=== PATIENT | female | born 1955 | race Caucasian/White ===

== ENCOUNTER 2019-01-04 04:31 | Inpatient (IN) | payer BC ==
[2019-01-04] MEDS ORDERED: ACETAMINOPHEN 1000 MG/100 ML VIAL (NON FORMULARY) IVPB ONE (05:02)
--- NOTE | 2019-01-04 05:02 | PDOC ---
Attending Attestation - Resident Resident Name: JeredEnmanuel - ED Attending Attestation I have performed the following: I have examined & evaluated the patient, The case was reviewed & discussed with the resident, I agree w/resident's findings & plan - HPI HPI: 01/04/19 05:00 Pt comes with fall in her backyard. She is all scratched up and banged up. - Physicial Exam PE: 01/04/19 05:01 Agree with resident exam. - Medical Decision Making 01/04/19 05:01 Pt will get head CT. ABX, XRAYS, saline, labs, EKG 01/04/19 05:58 All labs are normal 01/04/19 06:08 Pt will be admitted for 24 hrs of observation. Heart Score/ECG Review - ECG Intrepretation Rhythm: Regular Rhythm - Kanaranzi Kanaranzi: Normal - P and OH Delta Wave(s) Present: No WPW: No - QRS Poor R Wave Progression: No Q Wave Present: No - ST and T Early Repolarization: No Non Specific ST-T Wave changes: No Flattened T Waves: No Prolonged Q-T Interval: No - ECG Impressions Normal ECG: Yes Non-specific ST Elevation: No Ischemic Changes: No Bradycardia: No Torsades celso Pointes: No
--- NOTE | 2019-01-04 05:04 | PDOC ---
History of Present Illness - General Chief Complaint: Injury Stated Complaint: FALL Time Seen by Provider: 01/04/19 05:00 History Source: Patient Exam Limitations: No Limitations - History of Present Illness Initial Comments: 01/04/19 06:53 63 yo F with a hx of breast cancer (s/p resection; no chemo or radiation), HLD, and GERD presents to the emergency department s/p fall that occurred at 9pm yesterday. Per the patient, she was in her backyard and opened the back gate. The dog ran out which caused her to fall, landing on the right side on the lower extremity and hitting the left forehead against cement pavement. Denies LOC. Denies nausea and vomiting. She tried to "sleep it off" but subsequently awoke this morning with pain in the right knee, right foot, left foot, left forehead. Denies the following: lightheadedness, chest pain, SOB, dysuria, hematuria, diarrhea, hematochezia, and dizziness. AllergieS: NKDA Social hx: Denies substance abuse Shx: Refer to above Past History - Past Medical History Allergies/Adverse Reactions: Allergies Allergy/AdvReac Type Severity Reaction Status Date / Time No Known Allergies Allergy Verified 01/04/19 04:38 Home Medications: Ambulatory Orders Levothyroxine Sodium [Synthroid] 100 mcg PO DAILY 01/04/19 Losartan Potassium [Cozaar -] 50 mg PO DAILY 01/04/19 Rosuvastatin [Crestor -] 20 mg PO HS 01/04/19 Sertraline HCl [Zoloft -] 100 mg PO DAILY 01/04/19 Cancer: Yes (remission breast) COPD: No Hypercholesterolemia: Yes - Suicide/Smoking/Psychosocial Hx Smoking History: Never smoked Review of Systems - Review of Systems Able to Perform ROS?: Yes Is the patient limited Irish proficient: No Constitutional: No: Chills, Diaphoresis, Fever, Weakness HEENTM: No: Eye Pain, Blurred Vision, Ear Pain, Nose Pain, Throat Pain, Mouth Pain Respiratory: No: Cough, Shortness of Breath, SOB with Exertion, Hemoptysis Cardiac (ROS): No: Chest Pain, Lightheadedness, Palpitations, Syncope, Chest Tightness ABD/GI: No: Constipated, Diarrhea, Nausea, Rectal Bleeding, Vomiting, Tarry Stools : No: Burning, Dysuria, Hematuria Musculoskeletal: Yes: Joint Pain, Muscle Pain. No: Back Pain, Neck Pain Integumentary: No: Bruising, Erythema, Rash Neurological: Yes: Headache. No: Numbness, Tingling, Tremors Psychiatric: No: Change in Appetite Endocrine: No: Unexplained Weight Gain Hematologic/Lymphatic: No: Anemia *Physical Exam - Vital Signs Last Vital Signs Temp Pulse Resp BP Pulse Ox 97.8 F 82 18 94/74 99 01/04/19 04:38 01/04/19 04:38 01/04/19 04:38 01/04/19 04:01/04/19 04:38 - Physical Exam General Appearance: Yes: Nourished, Appropriately Dressed, Other (punctate laceration on the left forehead. ). No: Disheveled, Intoxicated HEENT: positive: EOMI, TREMAYNE, Normal Voice, Symmetrical, Pharynx Normal, Hearing Grossly Normal. negative: Pale Conjunctivae, Scleral Icterus (R), Scleral Icterus (L), Muffled/Hoarse voice, Pharyngeal Erythema, Tonsillar Exudate, Tonsillar Erythema, Nasal Congestion, Rhinorrhea, Sinus Tenderness, Excessive drooling Neck: positive: Trachea midline, Supple. negative: Tender, Lymphadenopathy (R) , Lymphadenopathy (L), Tender lateral, Tender midline Respiratory/Chest: positive: Lungs Clear, Normal Breath Sounds. negative: Chest Tender, Respiratory Distress, Accessory Muscle Use, Crackles, Rales, Rhonchi, Stridor, Wheezing Cardiovascular: positive: Regular Rhythm, Regular Rate, S1, S2. negative: Systolic Murmur Gastrointestinal/Abdominal: positive: Normal Bowel Sounds, Flat, Soft. negative : Tender, Distended, Guarding, Rebound Lymphatic: negative: Adenopathy Musculoskeletal: positive: Vertebral Tenderness (L1-T12 region), Other (no step offs noted. no ecchymosis on the back). negative: Normal Inspection (abrasions located on the right tibia/fibula with flexion with difficulty ROM of the right knee. Ecchymosis noted on the right knee. Left tib/fib ecchymosis. Tenderness to palpation in the right knee, right tib/fib, and left foot. ), CVA Tenderness Extremity: positive: Normal Capillary Refill, Normal Inspection, Normal Range of Motion, Other (NVI bilaterally). negative: Tender, Swelling, Calf Tenderness Integumentary: positive: Normal Color, Dry, Warm. 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 negative: Motor Strength 5/5 (unable to extend right knee) ED Treatment Course - LABORATORY CBC & Chemistry Diagram: 01/04/19 05:10 01/04/19 05:10 - RADIOLOGY Radiology Studies Ordered: Category Date Time Status CERVICAL SPINE CT W/O CONTR [CT] Stat CT Scan 01/04/19 05:[address] WITHOUT CONTRAST [CT] Stat CT Scan 01/04/19 05:[address] W/O CONTRAST [CT] Stat CT Scan 01/04/19 05:[address] W/O CONTRAST [CT] Stat CT Scan 01/04/19 05:02 Ordered CHEST PA & LAT [RAD] Stat Radiology 01/04/19 05:02 Ordered FOOT-LEFT [RAD] Stat Radiology 01/04/19 05:02 Ordered FOOT-RIGHT [RAD] Stat Radiology 01/04/19 05:02 Ordered HIP & PELVIS-LEFT [RAD] Stat Radiology 01/04/19 05:02 Ordered HIP & PELVIS-RIGHT [RAD] Stat Radiology 01/04/19 05:02 Ordered KNEE 3 POS-LEFT [RAD] Stat Radiology 01/04/19 05:02 Ordered KNEE 3 POS-RIGHT [RAD] Stat Radiology 01/04/19 05:02 Ordered LEG TIB/FIB-LEFT [RAD] Stat Radiology 01/04/19 05:03 Ordered LEG TIB/FIB-RIGHT [RAD] Stat Radiology 01/04/19 05:02 Ordered Medical Decision Making - Medical Decision Making 63 yo F with a hx of breast cancer (s/p resection; no chemo or radiation), HLD, and GERD presents to the emergency department s/p fall that occurred at 9pm yesterday. Initial vitals: Initial Vital Signs Temp Pulse Resp BP Pulse Ox 97.8 F 82 18 94/74 99 01/04/19 04:38 01/04/19 04:38 01/04/19 04:38 01/04/19 04:38 01/04/19 04:38 Work up: patient presents s/p fall. will have trauma work up. Last tetanus shot 5 years ago. Patient to be signed out to Dr. Hall. She was given 25 mcg of fentanyl and 1 gram of tylenol for pain relief. Currently in the midst of her imaging at the time of sign out. Laboratory Tests 01/04/19 01/04/19 01/04/19 05:10 05:10 05:10 WBC 10.6 H RBC 3.79 Hgb 12.4 Hct 36.2 MCV 95.4 MCH 32.8 MCHC 34.4 RDW 14.0 Plt Count 183 MPV 9.0 Absolute Neuts (auto) 8.8 H Neutrophils % 82.7 Lymphocytes % 8.4 Monocytes % 8.2 Eosinophils % 0.2 Basophils % 0.5 Nucleated RBC % 0 PT with INR 12.90 INR 1.09 Sodium 138 Potassium 3.5 Chloride 104 Carbon Dioxide 27 Anion Gap 8 BUN 13.1 Creatinine 0.8 Est GFR (CKD-EPI)AfAm 90.94 Est GFR (CKD-EPI)NonAf 78.46 Random Glucose 125 H Calcium 9.2 Total Bilirubin 0.6 AST 20 ALT 20 Alkaline Phosphatase 70 Total Protein 6.7 Albumin 3.9 Blood Type Antibody Screen 01/04/19 05:10 WBC RBC Hgb Hct MCV MCH MCHC RDW Plt Count MPV Absolute Neuts (auto) Neutrophils % Lymphocytes % Monocytes % Eosinophils % Basophils % Nucleated RBC % PT with INR INR Sodium Potassium Chloride Carbon Dioxide Anion Gap BUN Creatinine Est GFR (CKD-EPI)AfAm Est GFR (CKD-EPI)NonAf Random Glucose Calcium Total Bilirubin AST ALT Alkaline Phosphatase Total Protein Albumin Blood Type O POSITIVE Antibody Screen Negative 01/04/19 07:00 *DC/Admit/Observation/Transfer Diagnosis at time of Disposition: Fall - Referrals - Patient Instructions - Post Discharge Activity
[2019-01-04] MEDS ORDERED: BACITRACIN/POLYMYXIN B SULFATE 15 GM TUBE TP ONE (05:08)
[2019-01-04] MEDS ORDERED: ACETAMINOPHEN INJECTION 100 ML IVPB ONE (05:21)
[2019-01-04 05:28] LABS: BASO % 0.5 % (0-2.0); EOS % 0.2 % (0-4.5); HEMATOCRIT 36.2 % (32.4-45.2); HEMOGLOBIN 12.4 GM/dL (10.7-15.3); LYMPH % 8.4 % (8-40); MCH 32.8 pg (25.7-33.7); MCHC 34.4 g/dl (32.0-36.0); MEAN CELL VOLUME 95.4 fl (80-96); MONO % 8.2 % (3.8-10.2); NEUT % 82.7 % (42.8-82.8); PLATELET COUNT 183 K/MM3 (134-434); RBC 3.79 M/mm3 (3.60-5.2); WHITE BLOOD COUNT 10.6 K/mm3 (4.0-10.0)
[2019-01-04 05:40] LABS: INR 1.09 (0.83-1.09); PROTHROMBIN TIME (PATIENT) 12.9 SEC (9.7-13.0)
[2019-01-04 05:54] LABS: ALBUMIN 3.9 g/dl (3.4-5.0); BILIRUBIN,TOTAL 0.6 mg/dL (0.2-1); BLOOD UREA NITROGEN 13.1 mg/dL (7-18); CALCIUM 9.2 mg/dL (8.5-10.1); CREATININE 0.8 mg/dL (0.55-1.3); POTASSIUM 3.5 mmol/L (3.5-5.1); TOT PROT 6.7 g/dl (6.4-8.2)
--- NOTE | 2019-01-04 07:13 | PDOC ---
*Physical Exam - Vital Signs Last Vital Signs Temp Pulse Resp BP Pulse Ox 97.8 F 82 18 94/74 99 01/04/19 04:38 01/04/19 04:38 01/04/19 04:38 01/04/19 04:38 01/04/19 05:46 ED Treatment Course - LABORATORY CBC & Chemistry Diagram: 01/05/19 06:32 01/05/19 06:32 - ADDITIONAL ORDERS Additional order review: Laboratory Results 01/04/19 01/04/19 01/04/19 05:10 05:10 05:10 PT with INR 12.90 INR 1.09 Sodium 138 Potassium 3.5 Chloride 104 Carbon Dioxide 27 Anion Gap 8 BUN 13.1 Creatinine 0.8 Est GFR (CKD-EPI)AfAm 90.94 Est GFR (CKD-EPI)NonAf 78.46 Random Glucose 125 H Calcium 9.2 Total Bilirubin 0.6 AST 20 ALT 20 Alkaline Phosphatase 70 Total Protein 6.7 Albumin 3.9 Blood Type O POSITIVE Antibody Screen Negative 01/04/19 05:10 RBC 3.79 MCV 95.4 MCHC 34.4 RDW 14.0 MPV 9.0 Neutrophils % 82.7 Lymphocytes % 8.4 Monocytes % 8.2 Eosinophils % 0.2 Basophils % 0.5 - Medications Given in the ED: ED Medications Discontinued Medications Generic Name Dose Route Start Last Admin Trade Name Macho PRN Reason Stop Dose Admin Acetaminophen 1,000 mg 01/04/19 05:02 01/04/19 05:28 Ofirmev Injection - IVPB 01/04/19 05:03 1,000 mg ONCE ONE Administration Bacitracin/Polymyxin B Sulfate 1 applic 01/04/19 05:08 01/04/19 05:28 Polysporin Ointment - TP 01/04/19 05:09 1 applic NOW ONE Administration Fentanyl 25 mcg 01/04/19 05:09 01/04/19 05:28 Sublimaze Injection - IVPUSH 01/04/19 05:10 25 mcg ONCE ONE Administration Medical Decision Making - Medical Decision Making 01/04/19 07:13 Pt received on sign out from Dr. Lawton. Briefly, s/p mechanical fall. All imaging negative. Lac repair to head. 01/04/19 10:01 Discussed at length with Dr. Zepeda. He requests that we hold off on admission until he comes down to evaluate the patient. 01/04/19 10:30 Discussed the patient with Dr. Zepeda and the medicine team at bedside, who accepts the patient for admission. *DC/Admit/Observation/Transfer Diagnosis at time of Disposition: Fall Qualifiers: Encounter type: initial encounter Qualified Code(s): W19.XXXA - Unspecified fall, initial encounter - Discharge Dispostion Condition at time of disposition: Stable - Referrals - Patient Instructions - Post Discharge Activity Laceration/Wound Repair - Laceration/Wound Repair Left Anterior Head Remarks: 0.5 cm laceration to the left forehead. Verbal consent was obtained, and patient was provided with risks and alternatives to the procedure. Wound was copiously irrigated with 180 cc water, and anesthetized with 3 mL of lidocaine 1%. Wound carefully explored and no foreign body, tendon injury, or nonviable tissue were noted. Using sterile technique 5-0 suture/deborah was used to reapproximate the wound. 1 interrupted- sutures were placed. Patient tolerated procedure well, no complications. Patient advised to look for and return for any signs of infection such as redness, swelling, discharge, or worsening pain. Patient advised to return for suture removal within 7 days. Right Leg Remarks: Abrasions spanning the right lower leg cleaned with sterile water. Bacitracin applied along abrasions, wrapped in gauze and kerlex. Right knee immobilizer placed.
[2019-01-04] MEDS ORDERED: morphine CARPU-JECT 4 MG/1 ML DISP.SYRIN IVPUSH ONE (08:13)
[2019-01-04] MEDS ORDERED: morphine SULFATE 4 MG/ML VIAL ONE (08:29)
[2019-01-04] MEDS ORDERED: BACITRACIN 0.9 GM PACKET ONE ×2 (08:54)
[2019-01-04] MEDS ORDERED: SODIUM CHLORIDE 1,000 ML IV SCH (12:15)
[2019-01-04] MEDS: ACETAMINOPHEN 325 MG TABLET (FP) PO PRN ×2 (13:09→21:26)
[2019-01-04] MEDS: oxyCODONE HCL 5 MG TABLET PO PRN ×2 (13:10→21:26)
[2019-01-04 14:40] VITALS: BMI 22.8
--- NOTE | 2019-01-04 14:50 | EKG ---
Test Reason : Blood Pressure : / mmHG Vent. Rate : 072 BPM Atrial Rate : 072 BPM P-R Int : 134 ms QRS Dur : 074 ms QT Int : 412 ms P-R-T Axes : 040 053 071 degrees QTc Int : 451 ms NORMAL SINUS RHYTHM NORMAL ECG NO PREVIOUS ECGS AVAILABLE Confirmed by GIA GONGORA, STEPHANIE ([id number]) on 01/04/2019 2:49:37 PM Referred By: Confirmed By:STEPHANIE NIELSEN MD
--- NOTE | 2019-01-04 16:26 | PN ---
Progress Note (short form) - Note Progress Note: Pt seen and examined. She is a 63 year old female patient s/p fall down a flight of concrete steps, now complaining of right knee pain. At this moment her pain is more posterior. PE Right LE is NVI Good ROM of the right ankle, foot, toes. Good ROM of the right knee. Right knee has a definite moderate sized knee effusion. + tender globally. + abrasion on the anterior aspect of the right patella. Difficult to assess knee stability as the patient is severely guarding. Right hip isn't bothering her X-rays right and left foot normal right and left tib/fib normal right and left knee normal Ct scan right LE, including the knee, shows only a possible, small nondisplaced fracture of the inferior pole of the patella. Imp 63 yo F s/p fall with a severe right knee sprain. Rec P.T., WBAT, ROM as tolerated OOB to chair She can be dc'd home or to a short term rehab facility
[2019-01-04] MEDS: NICOTINE 7 MG/24 HOURS TOPICAL PATCH TD SCH (17:14)
--- NOTE | 2019-01-04 18:46 | PN ---
Teaching Attending Note Name of Resident: Olimpia Cuevas ATTENDING PHYSICIAN STATEMENT I saw and evaluated the patient. I reviewed the resident's note and discussed the case with the resident. I agree with the resident's findings and plan as documented. SUBJECTIVE: Complains of R Knee pain/tenderness s/p fall. No fever/chills. OBJECTIVE: Afebrile, Hemodynamically Stable. Last Vital Signs Temp Pulse Resp BP Pulse Ox 99.2 F 18 L 68 H 128/51 L 96 01/04/19 14:48 01/04/19 14:48 01/04/19 14:48 01/04/19 14:48 01/04/19 12:00 HEENT - L laceration/eccymosis to forehead s/p sutures by ED Heart - S1, S2, RRR Lungs - clear to auscultation Abdomen - Soft, non-tender. Bowel Sounds normal. Extremities - Abrasions bilateral knees and anterior aspect of bilateral LEs/ shins. RLE abrasions dressed and knee immobilized. Nerovascularly intact. Neuro -AAO x 3. Tone/Power normal all 4 extremities. No edema. Laboratory Results - last 24 hr 01/04/19 01/04/19 01/04/19 05:10 05:10 05:10 WBC 10.6 H RBC 3.79 Hgb 12.4 Hct 36.2 MCV 95.4 MCH 32.8 MCHC 34.4 RDW 14.0 Plt Count 183 MPV 9.0 Absolute Neuts (auto) 8.8 H Neutrophils % 82.7 Lymphocytes % 8.4 Monocytes % 8.2 Eosinophils % 0.2 Basophils % 0.5 Nucleated RBC % 0 PT with INR 12.90 INR 1.09 Sodium 138 Potassium 3.5 Chloride 104 Carbon Dioxide 27 Anion Gap 8 BUN 13.1 Creatinine 0.8 Est GFR (CKD-EPI)AfAm 90.94 Est GFR (CKD-EPI)NonAf 78.46 Random Glucose 125 H Calcium 9.2 Total Bilirubin 0.6 AST 20 ALT 20 Alkaline Phosphatase 70 Total Protein 6.7 Albumin 3.9 Blood Type Antibody Screen 01/04/19 01/04/19 05:10 10:50 WBC RBC Hgb Hct MCV MCH MCHC RDW Plt Count MPV Absolute Neuts (auto) Neutrophils % Lymphocytes % Monocytes % Eosinophils % Basophils % Nucleated RBC % PT with INR INR Sodium Potassium Chloride Carbon Dioxide Anion Gap BUN Creatinine Est GFR (CKD-EPI)AfAm Est GFR (CKD-EPI)NonAf Random Glucose Calcium Total Bilirubin AST ALT Alkaline Phosphatase Total Protein Albumin Blood Type O POSITIVE O POSITIVE Antibody Screen Negative Current Medications Generic Name Dose Route Start Last Admin Trade Name Freq PRN Reason Stop Dose Admin Acetaminophen 650 mg 01/04/19 12:24 01/04/19 13:09 Tylenol - PO 650 mg Q6H PRN Administration FEVER Sodium Chloride 1,000 mls @ 75 mls/hr 01/04/19 12:15 01/04/19 13:09 Normal Saline - IV 75 mls/hr ASDIR NINA Administration Nicotine 7 mg 01/04/19 15:15 01/04/19 17:14 Nicoderm Patch - TD 7 mg DAILY NINA Administration Oxycodone HCl 5 mg 01/04/19 12:13 01/04/19 13:10 Roxicodone - PO 5 mg Q6H PRN Administration PAIN LEVEL 7 - 10 Home Medications Medication Instructions Recorded Levothyroxine Sodium [Synthroid] 100 mcg PO DAILY 01/04/19 Losartan Potassium [Cozaar -] 50 mg PO DAILY 01/04/19 Rosuvastatin [Crestor -] 20 mg PO HS 01/04/19 Sertraline HCl [Zoloft -] 100 mg PO DAILY 01/04/19 ASSESSMENT AND PLAN: 63 year old female smoker with history of Hypothyroidism, HTN, HLD, s/p fall down 8 concrete steps isabelle she was thrown off balance by her dog. She denies any preceeding CP/palpitations/lightheadedness. She did sustain head injury with laceration ro L forehead. No LOC. 1. R patella non-displaced fracture s/p mechanical fall/trauma Partially hemorrhagic fluid within the suprapatella bursa on CT RLE. Orthopedic consult - further management as per Ortho. PT eval - WBAT as per Ortho Oxycodone 5mg q6hr prn Unable to ambulate currently - may need SNF - further recommendations as per PT/ Orthopedics. 2. Head Injury s/p mechanical fall s/p laceration closure by suture by ED. CT Head reported as negative, awaiting official report. 3. Hypothyroidism - continue Levothyroxine. 4. HTN - continue Losartan 5. HLD - continue Crestor. 6. Smoker - counseled. Nicotine patch. DVT Px - SCDs. Will hold heparin for now given suprapatella hemorrhagic effusion on CT RLE.
--- NOTE | 2019-01-04 21:41 | HP ---
CHIEF COMPLAINT: right knee pain s/p fall PCP: Nadeen HISTORY OF PRESENT ILLNESS: Ms. Ema Lucio is a 63yo female with HTN, HLD, hypothyroidism, breast ca s/p resection (no chemo or radiation), mood disorder, and possible MVP who presents s/p mechanical fall. She was caring for her son's dog last night and was dragged by the dog on the leash and fell down 8 concrete steps outside. She denies LOC, WEISS, or dizziness. She has a small laceration on left forehead after hitting it on the concrete She reports falling on her right knee and has pain and swelling. She denies fever, chills, n/v/d, chest pain, SOB, dysuria, or hematuria. Last tetanus shot was 5 years ago. ER course was notable for: (1) knee x-ray possible tibial fx (tib/fib view) (2) CT mod to large partially hemorrhagic fluid in suprapatellar bursa, lower pole of patella possible non-displaced fx line (3) pain control Recent Travel: none PAST MEDICAL HISTORY: HTN, HLD, hypothyroidism, breast ca s/p resection (no chemo or radiation), mood disorder, and possible MVP PAST SURGICAL HISTORY: breast ca s/p resection Social History: Smoking: yes Alcohol: denies Drugs: denies Family History: unremarkable Allergies No Known Allergies Allergy (Verified 01/04/19 04:38) HOME MEDICATIONS: Home Medications Medication Instructions Recorded Levothyroxine Sodium [Synthroid] 100 mcg PO DAILY 01/04/19 Losartan Potassium [Cozaar -] 50 mg PO DAILY 01/04/19 Rosuvastatin [Crestor -] 20 mg PO HS 01/04/19 Sertraline HCl [Zoloft -] 100 mg PO DAILY 01/04/19 REVIEW OF SYSTEMS CONSTITUTIONAL: Absent: fever, chills, weakness HEENT: Absent: rhinorrhea, nasal congestion, throat pain, ear pain CARDIOVASCULAR: Absent: chest pain, syncope, palpitations RESPIRATORY: Absent: cough, shortness of breath, dyspnea with exertion, wheezing GASTROINTESTINAL: Absent: abdominal pain, nausea, vomiting, diarrhea GENITOURINARY: Absent: dysuria, hematuria MUSCULOSKELETAL: Present: arthralgia, joint swelling Absent: back pain, neck pain SKIN: Present: abrasions Absent: rash, itching, pallor HEMATOLOGIC/IMMUNOLOGIC: Absent: easy bleeding, easy bruising, lymphadenopathy, frequent infections ENDOCRINE: Absent: unexplained weight gain, unexplained weight loss, heat intolerance, cold intolerance NEUROLOGIC: Absent: headache, dizziness, unsteady gait PSYCHIATRIC: Absent: anxiety, depression, suicidal or homicidal ideation, hallucinations. PHYSICAL EXAMINATION Vital Signs - 24 hr 01/04/19 01/04/19 01/04/19 04:38 05:46 07:53 Temperature 97.8 F 98.3 F Pulse Rate 82 Pulse Rate [ 74 Left Radial] Respiratory 18 18 Rate Blood Pressure 94/74 Blood Pressure 107/50 L [Right Arm] O2 Sat by Pulse 99 99 95 Oximetry (%) 01/04/19 01/04/19 01/04/19 11:18 12:00 14:48 Temperature 98.6 F 99.1 F 99.2 F Pulse Rate 18 L 18 L Pulse Rate [ 71 Left Radial] Respiratory 69 H 68 H Rate Blood Pressure 119/49 L 128/51 L Blood Pressure 110/45 L [Right Arm] O2 Sat by Pulse 97 96 Oximetry (%) 01/04/19 01/04/19 18:00 19:59 Temperature 98.8 F Pulse Rate 72 Pulse Rate [ Left Radial] Respiratory 20 Rate Blood Pressure 92/36 L 110/42 L Blood Pressure [Right Arm] O2 Sat by Pulse Oximetry (%) GENERAL: Awake, alert, and fully oriented, in no acute distress. HEAD: 1cm left forehead laceration sutured, surrounding erythema EYES: Pupils equal, round and reactive to light, extraocular movements intact, sclera anicteric, conjunctiva clear. No lid lag. EARS, NOSE, THROAT: Ears normal, nares patent, moist mucous membranes. NECK: Normal range of motion, supple without lymphadenopathy, JVD, or masses. LUNGS: Expiratory wheezing bilaterally. No accessory muscle use. HEART: Regular rate and rhythm, normal S1 and S2 without murmur, rub or gallop. ABDOMEN: Soft, nontender, not distended, normoactive bowel sounds MUSCULOSKELETAL: right knee in immobilizer Normal range of motion at other joints. No bony deformities or tenderness. UPPER EXTREMITIES: 2+ pulses, warm, well-perfused. No cyanosis. No clubbing. No peripheral edema. LOWER EXTREMITIES: 2+ pulses, warm, well-perfused. No peripheral edema, abrasions noted NEUROLOGICAL: Cranial nerves II-XII intact. Normal speech. PSYCHIATRIC: Cooperative. Good eye contact. Appropriate mood and affect. SKIN: Warm, dry, normal turgor, no rashes or lesions noted, normal capillary refill. Laboratory Results - last 24 hr 01/04/19 01/04/19 01/04/19 05:10 05:10 05:10 WBC 10.6 H RBC 3.79 Hgb 12.4 Hct 36.2 MCV 95.4 MCH 32.8 MCHC 34.4 RDW 14.0 Plt Count 183 MPV 9.0 Absolute Neuts (auto) 8.8 H Neutrophils % 82.7 Lymphocytes % 8.4 Monocytes % 8.2 Eosinophils % 0.2 Basophils % 0.5 Nucleated RBC % 0 PT with INR 12.90 INR 1.09 Sodium 138 Potassium 3.5 Chloride 104 Carbon Dioxide 27 Anion Gap 8 BUN 13.1 Creatinine 0.8 Est GFR (CKD-EPI)AfAm 90.94 Est GFR (CKD-EPI)NonAf 78.46 Random Glucose 125 H Calcium 9.2 Total Bilirubin 0.6 AST 20 ALT 20 Alkaline Phosphatase 70 Total Protein 6.7 Albumin 3.9 Blood Type Antibody Screen 01/04/19 01/04/19 05:10 10:50 WBC RBC Hgb Hct MCV MCH MCHC RDW Plt Count MPV Absolute Neuts (auto) Neutrophils % Lymphocytes % Monocytes % Eosinophils % Basophils % Nucleated RBC % PT with INR INR Sodium Potassium Chloride Carbon Dioxide Anion Gap BUN Creatinine Est GFR (CKD-EPI)AfAm Est GFR (CKD-EPI)NonAf Random Glucose Calcium Total Bilirubin AST ALT Alkaline Phosphatase Total Protein Albumin Blood Type O POSITIVE O POSITIVE Antibody Screen Negative ASSESSMENT/PLAN: Ms. Ema Lucio is a 63yo female with history of HTN, HLD, hypothyroidism, breast ca s/p resection (no chemo or radiation), mood disorder, and possible MVP who presents s/p mechanical fall down 8 concrete steps. Pt was caring for son's dog and was pulled by him. She landed on her right knee and also hit her left forehead on the concrete. #right lower pole patella non-displaced fracture s/p mechanical fall CT showed partially hemorrhagic fluid in right suprapatella bursa. Was in immobilizer on exam. -ortho consult- WBAT, OOB to chair, d/c immobilizer -PT consult -oxycodone 5mg Q6H PRN -social work consult- discuss possible need for SNF at d/c #head contusion with 1cm laceration Prelim CT head negative. Laceration repaired with suturing in ED. Last tetanus shot 5 years ago per pt. #HTN pt hypotensive since admission -losartan at home, hold for hypotension #hypothyroidism -continue levothyroxine #HLD -continue rosuvastatin #mood disorder -continue sertraline #tobacco use disorder -nicotine patch FEN PO fluids monitor lytes sodium controlled diet DVT prophylaxis SCDs. Will hold anti-coagulants given hemorrhagic effusion of bursa in right knee. Pt refusing SCDs because abrasions on LE. Visit type - Emergency Visit Emergency Visit: Yes ED Registration Date: 01/04/19 Care time: The patient presented to the Emergency Department on the above date and was hospitalized for further evaluation of their emergent condition. - New Patient This patient is new to me today: Yes Date on this admission: 01/04/19 - Critical Care Critical Care patient: No ATTENDING PHYSICIAN STATEMENT I saw and evaluated the patient. I reviewed the resident's note and discussed the case with the resident. I agree with the resident's findings and plan as documented. SUBJECTIVE: OBJECTIVE: ASSESSMENT AND PLAN:
[2019-01-05] MEDS: oxyCODONE HCL 5 MG TABLET PO PRN ×2 (06:09→12:46)
[2019-01-05] MEDS: ACETAMINOPHEN 325 MG TABLET (FP) PO PRN ×2 (06:10→12:48)
[2019-01-05 07:38] LABS: BASO % 0.8 % (0-2.0); EOS % 2.7 % (0-4.5); HEMATOCRIT 35.9 % (32.4-45.2); HEMOGLOBIN 12.1 GM/dL (10.7-15.3); LYMPH % 17.9 % (8-40); MCH 32.9 pg (25.7-33.7); MCHC 33.8 g/dl (32.0-36.0); MEAN CELL VOLUME 97.3 fl (80-96); MEAN PLT VOLUME 9.8 fl (7.5-11.1); MONO % 7.9 % (3.8-10.2); NEUT % 70.7 % (42.8-82.8); PLATELET COUNT 169 K/MM3 (134-434); RBC 3.69 M/mm3 (3.60-5.2); RDW 14.1 % (11.6-15.6); WHITE BLOOD COUNT 8.8 K/mm3 (4.0-10.0)
[2019-01-05 07:41] LABS: BLOOD UREA NITROGEN 10.4 mg/dL (7-18); CALCIUM 8.8 mg/dL (8.5-10.1); CREATININE 0.7 mg/dL (0.55-1.3); POTASSIUM 4.1 mmol/L (3.5-5.1)
[2019-01-05] MEDS: NICOTINE 7 MG/24 HOURS TOPICAL PATCH TD SCH (09:54)
[2019-01-05] MEDS ORDERED: LEVOTHYROXINE NA 100 MCG TABLET (FP) PO SCH (10:00)
[2019-01-05] MEDS ORDERED: SERTRALINE HCL 50 MG TABLET (FP) PO SCH (10:00)
[2019-01-05] MEDS ORDERED: LOSARTAN POTASSIUM 50 MG TABLET (FP) PO SCH (10:00)
--- NOTE | 2019-01-05 12:36 | PN ---
Progress Note (short form) - Note Progress Note: Ortho Pt seen and examined, feeling better Selected Entries 01/05/19 10:00 Temperature 98.4 F Pulse Rate 72 Respiratory 18 Rate Blood Pressure 118/62 Laboratory Tests 01/05/19 06:32 WBC 8.8 Hgb 12.1 Hct 35.9 Plt Count 169 +abrasion healing well, minimal ttp over inf pole of patella, able to SLR rom 2-90, calf soft, nt, nvi CT scan- questionable nondisplaced inferior pole patella fx a/p- Questionable inf pole patella fx- pt has minimal symptoms at this time PT wbat ROM exercises ok to d/c from ortho pov f/u in 10-14 days as outpt d/w Dr. Crouch
--- NOTE | 2019-01-05 14:45 | PN ---
Teaching Attending Note Name of Resident: Olimpia Cuevas ATTENDING PHYSICIAN STATEMENT I saw and evaluated the patient. I reviewed the resident's note and discussed the case with the resident. I agree with the resident's findings and plan as documented. SUBJECTIVE:c/o R knee pain with moderate relief with pain meds. denies Cp, SOB , fever, chills, N/V/C/D OBJECTIVE: Last Vital Signs Temp Pulse Resp BP Pulse Ox 98.4 F 72 18 118/62 97 01/05/19 10:01/05/19 10:01/05/19 10:01/05/19 10:01/04/19 21:00 General NAD HEENT L frontal laceration with sutures Extremities R knee swelling, negative drawers test. some tenderness noted in the thigh. good flexion/extension ASSESSMENT AND PLAN: 63 year old female smoker with history of Hypothyroidism, HTN, HLD, s/p fall down 8 concrete steps isabelle she was thrown off balance by her dog. She denies any preceeding CP/palpitations/lightheadedness. She did sustain head injury with laceration ro L forehead. No LOC. 1. R patella non-displaced fracture s/p mechanical fall/trauma. hemorrhagic fluid noted. no acute fracture. seen by ortho. WBAT to leg. seen by PT and suggested RW and exercises to strengthen. will need outpatient ortho follow up. will prescribe oxycodone for a few days 2. Head Injury s/p mechanical fall s/p laceration closure by suture by ED. will need suture removal in 1 week 3. Hypothyroidism - continue Levothyroxine. 4. HTN - continue Losartan 5. HLD - continue Crestor. 6. Smoker - counseled. Nicotine patch. 7. DVT Px - SCDs. Will hold heparin for now given suprapatella hemorrhagic effusion on CT RLE. 8. d/c home Istop Reference #: [id number]
--- NOTE | 2019-01-05 15:02 | DS ---
Physical Exam: SUBJECTIVE: Patient seen and examined. She reports pain is 7/10 with oxycodone. Pt denies headache, dizziness, numbness, or tingling. She was sitting in chair at exam. OBJECTIVE: Vital Signs Period Temp Pulse Resp BP Sys/Tracy Pulse Ox Last 24 Hr 98.4 F-99.0 F 72-72 18-20 92-118/36-62 97 PHYSICAL EXAM GENERAL: The patient is awake, alert, and fully oriented, in mild distress. HEAD: 1cm laceration left forehead, sutured EYES: PERRL, extraocular movements intact, sclera anicteric, conjunctiva clear. ENT: Ears normal, nares patent, moist mucous membranes. NECK: Trachea midline, full range of motion, supple. LUNGS: Breath sounds equal, clear to auscultation bilaterally, no wheezes, no crackles, no accessory muscle use. HEART: Regular rate and rhythm, S1, S2 without murmur, rub or gallop. ABDOMEN: Soft, nontender, nondistended, normoactive bowel sounds EXTREMITIES: 2+ pulses, warm, well-perfused, no edema, except right knee swelling anterior and posterior with abrasions on bilateral knees NEUROLOGICAL: Cranial nerves II through XII grossly intact. Normal speech, gait not observed. PSYCH: Normal mood, normal affect. SKIN: Warm, dry, normal turgor, no rashes or lesions except as noted. LABS Laboratory Results - last 24 hr 01/05/19 01/05/19 06:32 06:32 WBC 8.8 RBC 3.69 Hgb 12.1 Hct 35.9 MCV 97.3 H MCH 32.9 MCHC 33.8 RDW 14.1 Plt Count 169 MPV 9.8 Absolute Neuts (auto) 6.2 Neutrophils % 70.7 Lymphocytes % 17.9 D Monocytes % 7.9 Eosinophils % 2.7 D Basophils % 0.8 Nucleated RBC % 0 Sodium 140 Potassium 4.1 Chloride 106 Carbon Dioxide 28 Anion Gap 7 L BUN 10.4 Creatinine 0.7 Est GFR (CKD-EPI)AfAm 106.87 Est GFR (CKD-EPI)NonAf 92.21 Random Glucose 88 Calcium 8.8 HOSPITAL COURSE: Ms. Ema Lucio is a 63yo female with HTN, HLD, hypothyroidism, breast ca s/p resection (no chemo or radiation), mood disorder, who presented yesterday s/p mechanical fall. She was walking her son's dog, and he pulled the leash which caused her to fall down 8 concrete steps. She fell on her right knee and sustained a left forehead laceration of 1cm. It was sutured in ED. Pt tetanus is within last [address] head negative. She denied LOC, WEISS, or dizziness. Right knee x-ray and CT were performed with possible right patellar inferior pole non-displaced fracture with hemorrhagic fluid in suprapatellar bursa. Ortho recommended RICE, d/c immobilizer, and WBAT and follow up outpt. She was treated for pain. Pt instructed to follow up with PCP for suture removal in one week as well as ortho with Dr. Crouch. Date of Admission:01/04/19 Date of Discharge: 01/05/19 Minutes to complete discharge: 35 Discharge Summary Reason For Visit: FALL Current Active Problems Fall (Acute) Forehead laceration (Acute) Hemorrhagic prepatellar bursitis of right knee (Acute) Patellar fracture (Acute) Hyperlipidemia (Chronic) Hypertension (Chronic) Hypothyroidism (Chronic) Mood disorder (Chronic) Condition: Stable - Instructions Diet, Activity, Other Instructions: Your Hospital Visit: You were admitted to the hospital after a fall. You may have a small fracture of your patella in your right knee, but the orthopedic surgeon evaluated you and said no surgical interventions are needed at this time. You also have swelling in that knee and may have some blood from the fall in there. Continue to rest, ice, and elevate your knee. You may put weight on it as you can tolerate it. You also had a cut on your forehead that was stitched up in the emergency room. The stitches need to be removed in 1 week by your primary care doctor. You are being discharged home. Medications: Continue taking your home medications as directed. You are being given pain medication to take as needed for the pain. You may take Tylenol if the pain is not too severe. Please avoid anti-inflammatories until you are given the ok by the orthopedist. Follow up: Follow up with your primary care physician within 1 week after hospital discharge. A referral to [facility] (Dr. James) has been provided. Follow up with Orthopedic surgeon (Dr. Crouch) within one week of discharge. A referral has been provided. Other instructions: Please return to the nearest emergency room if you experience any of the following: loss of consciousness, extreme headache, chest pain, extreme shortness of breath, knee pain not controlled with prescription and over the counter medications, or numbness or tingling in your leg. Referrals: Suresh James MD [Staff Physician] - Brayan Crouch MD [Staff Physician] - Disposition: HOME - Home Medications Comprehensive Discharge Medication List: Ambulatory Orders Levothyroxine Sodium [Synthroid] 100 mcg PO DAILY 01/04/19 Losartan Potassium [Cozaar -] 50 mg PO DAILY 01/04/19 Rosuvastatin [Crestor -] 20 mg PO HS 01/04/19 Sertraline HCl [Zoloft -] 100 mg PO DAILY 01/04/19 Oxycodone HCl/Acetaminophen [Percocet 5-325 mg Tablet] 1 tab PO Q4H PRN #18 tablet MDD 6 tabs 01/05/19 This patient is new to me today: No Emergency Visit: Yes ED Registration Date: 01/04/19 Care time: The patient presented to the Emergency Department on the above date and was hospitalized for further evaluation of their emergent condition. Critical Care patient: No - Discharge Referral Referred to [facility] No ATTENDING PHYSICIAN STATEMENT I saw and evaluated the patient. I reviewed the resident's note and discussed the case with the resident. I agree with the resident's findings and plan as documented. SUBJECTIVE: OBJECTIVE: ASSESSMENT AND PLAN:
[2019-01-05 15:46] VITALS: BP 99/41; PULSE 78; TEMP 99
[2019-01-05] MEDS ORDERED: ROSUVASTATIN CA 20 MG TABLET (FP) PO SCH (22:00)
== END 2019-01-05 16:43 | disposition home or self-care (01) | DRG 605 ==
LOC: JER 04:31 → JERBED 10:21 → J5S 12:10
PROVIDERS: ATTEND Internal Medicine
PROC: 0HQ1XZZ Repair Face Skin, External Approach (ICD-10-PCS; principal; 2019-01-04)
DX: S01.81XA Laceration without foreign body of other part of head, initial encounter (principal); S82.091A Other fracture of right patella, initial encounter for closed fracture; S83.8X1A Sprain of other specified parts of right knee, initial encounter; E03.9 Hypothyroidism, unspecified; I10 Essential (primary) hypertension; E78.5 Hyperlipidemia, unspecified; F17.210 Nicotine dependence, cigarettes, uncomplicated; F39 Unspecified mood [affective] disorder; S80.212A Abrasion, left knee, initial encounter; S80.211A Abrasion, right knee, initial encounter; I34.1 Nonrheumatic mitral (valve) prolapse; W18.39XA Other fall on same level, initial encounter; Y92.098 Other place in other non-institutional residence as the place of occurrence of the external cause; Z85.3 Personal history of malignant neoplasm of breast
CPT/HCPCS: 36415; 70450-TC; 71046-TC-FY; 72125-TC; 72128-TC; 72131-TC; 72192-TC; 73562-TC-LT-FY; 73562-TC-RT-FY; 73590-TC-LT-FY; 73590-TC-RT-FY; 73630-TC-LT; 73630-TC-RT-FY; 73700-TC-RT; 80048; 80053; 85025; 85610; 86850; 86900; 86901; 93005; 93010; 97116-GP; 97162-GP; 99285-25; J0131; J7030